=== PATIENT | male | born 1940 | race Caucasian/White ===

== ENCOUNTER 2020-02-10 08:25 | Day surgery (SDC) | payer MEDICARE, OTHER ==
[~2020-02-10 08:25] MED LIST: BUPIVACAINE HCL 0.75% INJ/PF (7.5 MG/1 ML) 10 ML SDV OD PRN; CHONDR SU A NA/HYALUR INTRAOC KIT (SURGICARE) ONE; EPINEPHRINE INJ/PF 1 MG/1 ML AMPULE ONE; KETOROLAC TROMETHAMINE 0.45% 4 DROP/0.4 ML DROPERETTE OD PRN; LIDOCAINE 1% INJ-PF (10 MG/ML) 30 ML SDV ONE; LIDOCAINE 4% INJ/PF (40 MG/ML) 5 ML AMPUL OD PRN
[2020-02-10] MEDS ORDERED: LIDOCAINE 1%/PHENYLEPHRINE 1.5% 0.8 ML SYRINGE ONE (08:46)
[2020-02-10] MEDS: CYCLOPENTOLATE 0.2%/PHENYLEPHRINE 1% OPH SOLN 2 ML OD PRN ×3 (09:18→09:33)
[2020-02-10] MEDS: TROPICAMIDE 1% OPH SOLN 15 ML OD PRN ×3 (09:18→09:33)
[2020-02-10] MEDS: BESIFLOXACIN HCL 0.6% OPH SUSP 5 ML BOTTLE OD PRN ×5 (09:18→10:25)
[2020-02-10] MEDS: TETRACAINE HCL 0.5% OPH SOLN 4 ML OD PRN ×2 (09:18→09:53)
[2020-02-10] MEDS ORDERED: FENTANYL CITRATE INJ/PF 100 MCG/2 ML AMPUL ONE (10:01)
[2020-02-10] MEDS ORDERED: MIDAZOLAM 2 MG/2 ML INJ ONE (10:01)
[2020-02-10] MEDS: DORZOLAMIDE HCL 2%/TIMOLOL MALEAT 0.5% OPH SOLN 10 ML OD PRN ×3 (10:16→10:25)
--- NOTE | 2020-02-10 12:16 | Operative Report ---
Operative Report-[facility] Operative Report: DATE OF SURGERY: 02/10/2020 PREOPERATIVE DIAGNOSIS: 1. CATARACT, RIGHT EYE 2. PUPIL MIOSIS, RIGHT EYE POSTOPERATIVE DIAGNOSIS: 1. CATARACT, RIGHT EYE 2. PUPIL MIOSIS, RIGHT EYE PROCEDURE PERFORMED: COMPLEX CATARACT EXTRACTION WITH INTRAOCULAR LENS, RIGHT EYE Intraocular Lens Model: SN 60 WF 20.5 Total Phaco Time: 54 seconds SURGEON: ANDRES URENA MD ANESTHESIA: Topical with MAC plus intraocular phenylephrine and lidocaine INDICATIONS FOR SURGERY: Difficulty seeing road signs and captions on TV INDICATIONS FOR COMPLEX: Poor pupil dilation requiring the use of a Malyugin ring PROCEDURE: The patient was brought to the operating room placed on operating table. Topical anesthesia was administered. This consisted of instrument wipe pledgets soaked in a solution of 4% Xylocaine mixed with 0.75% Marcaine in a 1:2 ratio. A 2 x 1 cm pledget was placed in the superior fornix. A 1 x 1 cm pledget was placed in the inferior fornix. The eye was patched for 5 minutes. The patch and pledgets were removed. The eye was sterilely prepped and draped in the usual manner. A lid speculum was placed in the eye. A 4-0 black silk suture was placed around the superior and inferior rectus muscle to use as traction. A conjunctival peritomy was made at the 10 o'clock position. Hemostasis was obtained with bipolar cautery. A posterior limbal groove was created using a crescent knife and dissected anteriorly towards the cornea. Sharp point blade was used to create a paracentesis site at the 2 o'clock position. A 2.4 mm keratome was used into the anterior chamber through the groove. Then 0.5 mL of 1% non-preserved lidocaine with phenylephrine was injected into the anterior chamber. Viscoelastic was injected into the anterior chamber. Pupil dilation was approximately 4.5 mm. A Malyugin Ring was placed stabilizing the iris. An anterior capsulotomy was performed using Utrata forceps in a capsulorrhexis fashion. Hydrodissection and hydrodelineation was performed. Phacoemulsification was performed in the divide and conquer technique. Following this, that I/A unit was used to remove residual cortex. Viscoelastic was injected into the capsular bag. Intraocular lens were placed in the capsular bag. The Malyugin ring haptics were removed and the ring was removed from the eye. The I/A unit was used to remove residual viscoelastic. The wound was seen to be watertight under high and low pressure and no sutures were placed. The 4-0 black silk sutures and lid speculum were removed. The eye was shielded after Besivance and Cosopt drops were placed. The patient tolerated the procedure well and was sent to recovery room in good condition.
== END 2020-02-10 10:57 ==
LOC: SC 08:25
PROVIDERS: ATTEND Ophthalmology
DX: H25.811 Combined forms of age-related cataract, right eye (principal); H57.03 Miosis; H52.4 Presbyopia; D23.111 Other benign neoplasm of skin of right upper eyelid, including canthus; I10 Essential (primary) hypertension; E78.00 Pure hypercholesterolemia, unspecified; E66.9 Obesity, unspecified; N40.0 Benign prostatic hyperplasia without lower urinary tract symptoms; Z87.891 Personal history of nicotine dependence; Z79.899 Other long term (current) drug therapy
CPT/HCPCS: 66982; 00142; V2632; J2250; J3490 ×5; A9270; J0171; J3010; 142

== ENCOUNTER 2020-03-07 11:13 | Day surgery (SDC) | payer MEDICARE, OTHER ==
[~2020-03-07 11:13] MED LIST changes: -BUPIVACAINE HCL 0.75% INJ/PF (7.5 MG/1 ML) 10 ML SDV OD PRN; +BUPIVACAINE HCL 0.75% INJ/PF (7.5 MG/1 ML) 10 ML SDV OS PRN; -KETOROLAC TROMETHAMINE 0.45% 4 DROP/0.4 ML DROPERETTE OD PRN; +KETOROLAC TROMETHAMINE 0.45% 4 DROP/0.4 ML DROPERETTE OS PRN; -LIDOCAINE 4% INJ/PF (40 MG/ML) 5 ML AMPUL OD PRN; +LIDOCAINE 4% INJ/PF (40 MG/ML) 5 ML AMPUL OS PRN
[2020-03-07] MEDS: TROPICAMIDE 1% OPH SOLN 15 ML OS PRN ×3 (11:48→12:08)
[2020-03-07] MEDS: BESIFLOXACIN HCL 0.6% OPH SUSP 5 ML BOTTLE OS PRN ×4 (11:48→12:57)
[2020-03-07] MEDS: CYCLOPENTOLATE 0.2%/PHENYLEPHRINE 1% OPH SOLN 2 ML OS PRN ×3 (11:48→12:08)
[2020-03-07] MEDS: TETRACAINE HCL 0.5% OPH SOLN 4 ML OS PRN ×3 (11:49→12:22)
[2020-03-07] MEDS ORDERED: LIDOCAINE 1%/PHENYLEPHRINE 1.5% 0.8 ML SYRINGE ONE (12:04)
[2020-03-07] MEDS ORDERED: MIDAZOLAM 2 MG/2 ML INJ ONE (12:33)
[2020-03-07] MEDS ORDERED: FENTANYL CITRATE INJ/PF 100 MCG/2 ML AMPUL ONE (12:34)
[2020-03-07] MEDS: PREDNISOLONE ACETATE 1% OPH SUSP 5 ML OS PRN ×2 (12:57)
[2020-03-07] MEDS: DORZOLAMIDE HCL 2%/TIMOLOL MALEAT 0.5% OPH SOLN 10 ML OS PRN ×2 (12:57)
--- NOTE | 2020-03-07 14:49 | Operative Report ---
Operative Report-[facility] Operative Report: DATE OF SURGERY: 03/07/2020 PREOPERATIVE DIAGNOSIS: 1. CATARACT, LEFT EYE. 2. PUPIL MIOSIS, LEFT EYE POSTOPERATIVE DIAGNOSIS: 1. CATARACT, LEFT EYE. 2. PUPIL MIOSIS, LEFT EYE PROCEDURE PERFORMED: COMPLEX CATARACT EXTRACTION WITH INTRAOCULAR LENSES, LEFT EYE Intraocular Lens Model: SN 60 WF 20.0 Total Phaco Time: 14.66 CDE SURGEON: ANDRES URENA MD ANESTHESIA: Topical with MAC plus intraocular phenylephrine and lidocaine INDICATIONS FOR SURGERY: Difficulty driving and reading small print Indications for complex: Poor pupil dilation requiring the use of a ring PROCEDURE: The patient was brought to the operating room placed on operating table. Topical anesthesia was administered. This consisted of instrument wipe pledgets soaked in a solution of 4% Xylocaine mixed with 0.75% Marcaine in a 1:2 ratio. A 2 x 1 cm pledget was placed in the superior fornix. A 1 x 1 cm pledget was placed in the inferior fornix. The eye was patched for 5 minutes. The patch and pledgets were removed. The eye was sterilely prepped and draped in the usual manner. A lid speculum was placed in the eye. A 4-0 black silk suture was placed around the superior and inferior rectus muscle to use as traction. A conjunctival peritomy was made at the 10 o'clock position. Hemostasis was obtained with bipolar cautery. A posterior limbal groove was created using a crescent knife and dissected anteriorly towards the cornea. Sharp point blade was used to create a paracentesis site at the 2 o'clock position. A 2.4 mm keratome was used into the anterior chamber through the groove. Then 0.5 mL of 1% non-preserved lidocaine with phenylephrine was injected into the anterior chamber. Viscoelastic was injected into the anterior chamber. Pupil dilation was approximately 4.5 mm. A Malyugin Ring was placed stabilizing the iris. An anterior capsulotomy was performed using Utrata forceps in a capsulorrhexis fashion. Hydrodissection and hydrodelineation was performed. Phacoemulsification was performed in the divide and conquer technique. Following this, that I/A unit was used to remove residual cortex. Viscoelastic was injected into the capsular bag. Intraocular lens were placed in the capsular bag. The Malyugin ring haptics were removed and the ring was removed from the eye. The I/A unit was used to remove residual viscoelastic. The wound was seen to be watertight under high and low pressure and no sutures were placed. The 4-0 black silk sutures and lid speculum were removed. The eye was shielded after Besivance and Cosopt drops were placed. The patient tolerated the procedure well and was sent to recovery room in good condition.
== END 2020-03-07 13:41 | disposition home or self-care (01) ==
LOC: SC 11:13
PROVIDERS: ATTEND Ophthalmology
DX: H25.812 Combined forms of age-related cataract, left eye (principal); H57.03 Miosis; Z87.891 Personal history of nicotine dependence; I10 Essential (primary) hypertension; E78.00 Pure hypercholesterolemia, unspecified; E66.9 Obesity, unspecified; Z79.899 Other long term (current) drug therapy; N40.0 Benign prostatic hyperplasia without lower urinary tract symptoms
CPT/HCPCS: 66982; V2632; J2250; J3490 ×5; A9270; J0171; J3010; 142

== ENCOUNTER 2020-03-24 22:29 | Emergency (ER) | payer MEDICARE, OTHER ==
[2020-03-24 22:50] LABS: ABSOLUTE EOSINOPHILS # (AUTO) 0.2 10^3/uL (0.0-0.6); ABSOLUTE LYMPHOCYTES (AUTO) 1.6 10^3/uL (0.5-4.7); ABSOLUTE MONOCYTES (AUTO) 0.8 10^3/uL (0.1-1.4); ABSOLUTE NEUT (AUTO) 4.1 10^3/uL (1.7-8.2); BASOPHILS % (AUTO) 0.6 % (0-2); EOSINOPHILS % (AUTO) 3.6 % (0-6); HEMATOCRIT 38.2 % (37.9-51.0); HEMOGLOBIN 12.9 g/dL (13.5-17.0); LYMPHOCYTES % (AUTO) 24.3 % (13-45); MEAN CORPUSCULAR HEMOGLOBIN 31.8 pg (27.0-33.4); MEAN CORPUSCULAR HGB CONC 33.8 g/dL (32.0-36.0); MEAN CORPUSCULAR VOLUME 94 fl (80-97); MONOCYTES % (AUTO) 11.3 % (3-13); PLATELET COUNT 131 10^3/uL (150-450); RED BLOOD COUNT 4.05 10^6/uL (4.35-5.55); RED CELL DISTRIBUTION WIDTH 14.5 % (11.5-14.0); SEGMENTED NEUTROPHILS % (AUTO) 60.2 % (42-78); TOTAL CELLS COUNTED % (AUTO) 100 %; WHITE BLOOD COUNT 6.7 10^3/uL (4.0-10.5)
[2020-03-24 23:06] LABS: ALBUMIN 3.9 g/dL (3.5-5.0); ALKALINE PHOSPHATASE 58 U/L (38-126); ANION GAP 9 (5-19); ASPARTATE AMINO TRANSFERASE 33 U/L (17-59); BILIRUBIN,DIRECT 0.3 mg/dL (0.0-0.4); BILIRUBIN,TOTAL 0.9 mg/dL (0.2-1.3); BLOOD UREA NITROGEN 20 mg/dL (7-20); CALCIUM 8.4 mg/dL (8.4-10.2); CARBON DIOXIDE 30 mmol/L (22-30); CHLORIDE 104 mmol/L (98-107); CREATINE KINASE 96 U/L (55-170); GLUCOSE 123 mg/dL (75-110); POTASSIUM 4.2 mmol/L (3.6-5.0); TOTAL PROTEIN 6.7 g/dL (6.3-8.2)
[2020-03-24 23:11] LABS: APPEARANCE,URINE CLEAR; BILIRUBIN,URINE NEGATIVE (NEGATIVE); COLOR,URINE YELLOW; GLUCOSE, URINE NEGATIVE (NEGATIVE); KETONES,URINE NEGATIVE (NEGATIVE); LEUKOCYTE ESTERASE,URINE NEGATIVE (NEGATIVE); NITRITE,URINE NEGATIVE (NEGATIVE); PROTEIN,URINE 30 mg/dL (NEGATIVE); URINE SPECIFIC GRAVITY 1.015
[2020-03-24 23:26] LABS: CREATINE KINASE MB 0.83 ng/mL (<4.55)
[2020-03-24 23:28] LABS: TROPONIN I 0.08 ng/mL
--- NOTE | 2020-03-25 00:12 | ER Document Report ---
ED General - General Chief Complaint: Syncope Stated Complaint: SYNCOPE Time Seen by Provider: 03/24/20 23:44 Primary Care Provider: SANDRA VALLEJO MD [Primary Care Provider] - Follow up as needed - HPI Notes: Patient is a 79-year-old male with a history of one cardiac stent who presents status post syncopal episode. Around 9 PM this evening patient stood up from the couch, walked across the room when he suddenly felt lightheaded and dizzy. Patient called out for his who was able to help him down to the ground as he syncopized. Per son, patient was unresponsive for 5 to 10 minutes. Patient came to once EMS had arrived. Per EMS report, patient was hypotensive with BP in the 90s/50s and had runs of PVCs on the environmental monitoring specialist. Patient reports he is no longer lightheaded and denies chest pain, shortness of breath, fever, headache, abdominal pain, nausea, vomiting, diarrhea, and urinary symptoms. Patient denies any symptoms prior to his syncopal episode besides the lightheadedness. Patient denies hitting his head or any other injury. Patient is not currently taking any blood thinners. - Related Data Allergies/Adverse Reactions: No Known Allergies Allergy (Verified 03/07/20 11:47) Home Medications: rosuvastatin, amlodepine, duasteride, tamsulosin, losartan Past Medical History - General Information source: Patient - Social History Smoking Status: Never Smoker Frequency of alcohol use: None Drug Abuse: None Lives with: Family Family History: CAD Patient has homicidal ideation: No - Past Medical History Cardiac Medical History: Reports: Hx Hypertension Denies: Hx Heart Attack Pulmonary Medical History: Denies: Hx Asthma Neurological Medical History: Denies: Hx Cerebrovascular Accident, Hx Seizures GI Medical History: Denies: Hx Hepatitis, Hx Hiatal Hernia, Hx Ulcer Infectious Medical History: Denies: Hx Hepatitis Past Surgical History: Reports: Hx Cardiac Surgery - stent placement. Denies: Hx Open Heart Surgery, Hx Pacemaker Review of Systems - Review of Systems Constitutional: No symptoms reported EENT: No symptoms reported Cardiovascular: See HPI Respiratory: No symptoms reported Gastrointestinal: No symptoms reported Genitourinary: No symptoms reported Male Genitourinary: No symptoms reported Musculoskeletal: No symptoms reported Skin: No symptoms reported Hematologic/Lymphatic: No symptoms reported Neurological/Psychological: See HPI Physical Exam - Vital signs Vitals: Temp Pulse Resp BP Pulse Ox 97.8 F 75 18 118/68 90 L 03/24/20 22:34 03/24/20 22:34 03/24/20 22:34 03/24/20 22:34 03/24/20 22:34 - Notes Notes: PHYSICAL EXAMINATION: VITALS: Vitals reviewed and within normal limits. GENERAL: Well-appearing, well-nourished and in no acute distress. HEAD: Atraumatic, normocephalic. EYES: Pupils equal round and reactive to light, extraocular movements intact, sclera anicteric, conjunctiva are normal. ENT: nares patent, oropharynx clear without exudates. Moist mucous membranes. NECK: Normal range of motion, supple without lymphadenopathy. LUNGS: Breath sounds clear to auscultation bilaterally and equal. No wheezes rales or rhonchi. HEART: Regular rate and rhythm without murmurs. ABDOMEN: Soft, nontender, normoactive bowel sounds. No guarding, no rebound. No masses appreciated. EXTREMITIES: Normal range of motion, no pitting or edema. No cyanosis. NEUROLOGICAL: No focal neurological deficits. Moves all extremities spontaneously and on command. PSYCH: Normal mood, normal affect. SKIN: Warm, Dry, normal turgor, no rashes or lesions noted. Course - Re-evaluation Re-evalutation: Patient is a 79-year-old male with a history of cardiac stents who presents status post syncopal episode. Per EMS, patient was hypotensive with blood pressures in the 90s/50s with a run of PVCs noted on the environmental monitoring specialist. Patient reported lightheaded and dizziness just prior to syncopizing but denies any other symptoms. Vital signs are within normal limits and physical exam is unremarkable. Initial troponin elevated at 0.080, will repeat troponin at 3- hour tuan. EKG shows no ischemic changes. 03/25/20 02:45 Repeat troponin 1.100. Syncopal episode and elevated cardiac markers with a concern for NSTEMI or tachyarrhythmia. I will consult with my attending. 03/25/20 03:[address] Goldberg and he recommends transferring the patient for interventional cardiology. 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 03/25/20 03:41 [facility] contacted for transfer. Information concerning the patient given to the transfer line. I will be called back by the hospitalist, Dr. Khan. 03/25/20 03:[address] Khan, hospitalist at [facility]. He agreed to accept the patient but there currently no cardiac beds available. He talked with nursing and there is a possibility nursing coverage will increase in the morning after shift change and a bed will be available. I will call [facility] for bed availability but was told if we would like to proceed with transfer to [facility] to call around 7/8AM this morning after shift change to re-assess bed availability. 03/25/20 04:06 [facility] contacted for transfer. They said they were still accepting patients but patient could possibly be on a waitlist for up to 24 hours. I will be called back by the hospitalist. 03/25/20 04:[address] Montalvo, hospitalist, at [facility] and he agrees to accept the patient for further workup by interventional cardiology. Patient will be admitted to Telemetry. Emtala form completed. [facility] will arrive at 08:00 for transport. 03/25/20 07:43 Patient reassessed at bedside. He has no complaints and vital signs are within normal limits. Patient is stable for transfer. - Vital Signs Vital signs: Temp Pulse Resp BP Pulse Ox 98.5 F 63 20 160/77 H 100 03/25/20 07:11 03/25/20 07:11 03/25/20 07:11 03/25/20 07:11 03/25/20 07:11 - Laboratory Result Diagrams: 03/24/20 22:32 03/24/20 22:32 Laboratory results interpreted by me: 03/24/20 03/24/20 03/24/20 22:32 22:32 22:55 RBC 4.05 L Hgb 12.9 L RDW 14.5 H Plt Count 131 L Est GFR (MDRD) Non-Af 57 L Glucose 123 H Urine Protein 30 H Urine Urobilinogen 2.0 H - EKG Interpretation by Me Additional EKG results interpreted by me: Sinus rhythm with a rate of 76. Left anterior fascicular block. QTc 459. Left axis deviation. No T wave inversions or ST segment changes in consecutive leads. Discharge - Discharge Clinical Impression: Elevated troponin Syncope Qualifiers: Syncope type: unspecified Qualified Code(s): R55 - Syncope and collapse Condition: Stable Disposition: [facility] Referrals: SANDRA VALLEJO MD [Primary Care Provider] - Follow up as needed
--- NOTE | 2020-03-25 01:43 | RADIOLOGY REPORT (SQ) ---
CLINICAL HISTORY: syncope COMPARISON: None. TECHNIQUE: XR CHEST 1 VIEW 03/25/2020 1:12 AM CDT FINDINGS: The heart is borderline in size. There is mild bibasilar airspace disease. There is no pleural effusion. There is no pneumothorax. There are no acute osseous findings. IMPRESSION: Difficult to exclude bibasilar pneumonia.
[2020-03-25 09:11] VITALS: BP 141/72
--- NOTE | 2020-03-25 17:06 | EKG REPORT ---
SEVERITY:- ABNORMAL ECG - SINUS RHYTHM LEFT ANTERIOR FASCICULAR BLOCK : Confirmed by: Fabrice De Oliveira 25-Mar-2020 17:05:35
== END 2020-03-25 09:11 | disposition short-term general hospital (02) ==
LOC: ER 22:29
DX: R55 Syncope and collapse (principal); R79.89 Other specified abnormal findings of blood chemistry; I44.4 Left anterior fascicular block; I10 Essential (primary) hypertension; Z95.5 Presence of coronary angioplasty implant and graft; Z79.899 Other long term (current) drug therapy; Z82.49 Family history of ischemic heart disease and other diseases of the circulatory system
CPT/HCPCS: 36415; 71045; 80053; 81001; 82550; 82553; 84484; 85025; 93005; 93010; 99285